=== PATIENT | female | born 1950 | race African-American/Black ===

== ENCOUNTER 2016-09-23 06:13 | Emergency (ER) | payer SELFPAY ==
[~2016-09-23 06:13] MED LIST: BACTRIM DS TABL1 TA2 PO; DICLOFENAC PO; LISINOPRIL10 MG PO; PREDNISONE PO
== END 2016-09-23 07:25 | disposition home or self-care (01) ==
LOC: CED 06:13
DX: I10 Essential (primary) hypertension (principal); Z76.0 Encounter for issue of repeat prescription; Z91.19 Patient's noncompliance with other medical treatment and regimen; F17.210 Nicotine dependence, cigarettes, uncomplicated
CPT/HCPCS: 96361; 96374; 96375; 99284; J1200; J1885; J2765